=== PATIENT | male | born 1960 | race Caucasian/White ===

== ENCOUNTER 2025-05-26 09:02 | Outpatient (CLI) | payer OTHER | END 2025-05-26 09:03 | disposition home or self-care (01) | LOC: BICCT 09:02 | PROVIDERS: ATTEND Internal Medicine Cardiovascular Disease | DX: R94.31 Abnormal electrocardiogram [ECG] [EKG] (principal); I25.10 Atherosclerotic heart disease of native coronary artery without angina pectoris | CPT/HCPCS: 75571 ==